=== PATIENT | male | born 1950 | race Caucasian/White ===

== ENCOUNTER 2018-10-21 01:12 | Emergency (ER) | payer MEDICARE ==
[2018-10-21] MEDS ORDERED: Lidocaine 1% INJ* 10 MG/ML 30 ML SDV INJ ONE (01:38)
--- NOTE | 2018-10-21 02:07 | ED ---
Laceration/Wound HPI - HPI Summary HPI Summary: 68 year old male presents with left pinky finger today. He states he cut it while making dinner. It happened 7 hours ago. Area continues to bleed. He has no medical conditions. Denies any foreign body. is a throbbing pain. - History of Current Complaint Stated Complaint: FINGER LAC PER PT Time Seen by Provider: 10/21/18 01:31 Pain Intensity: 8 - Allergy/Home Medications Allergies/Adverse Reactions: Allergies Allergy/AdvReac Type Severity Reaction Status Date / Time No Known Allergies Allergy Verified 10/21/18 01:15 PMH/Surg Hx/FS Hx/Imm Hx Endocrine/Hematology History: Denies: Hx Anticoagulant Therapy Respiratory History: Denies: Hx Asthma - Cancer History Hx Chemotherapy: No Hx Radiation Therapy: No Infectious Disease History: No Infectious Disease History: Denies: Traveled Outside the [place] in Last 30 Days - Family History Known Family History: Positive: Non-Contributory - Social History Alcohol Use: None Substance Use Type: Reports: None Smoking Status (MU): Never Smoked Tobacco Review of Systems Negative: Fever Negative: Chest Pain Negative: Shortness Of Breath Positive: Other - left pinky finger laceration All Other Systems Reviewed And Are Negative: Yes Physical Exam Triage Information Reviewed: Yes Vital Signs On Initial Exam: Initial Vitals Temp Pulse Resp BP Pulse Ox 99 F 91 18 119/77 96 10/21/18 01:14 10/21/18 01:14 10/21/18 01:14 10/21/18 01:14 10/21/18 01:14 Vital Signs Reviewed: Yes Appearance: Positive: Well-Appearing Skin: Positive: Warm, Dry, Other - 2cm flap like laceration to distal phalanx of left pinky finger Head/Face: Positive: Normal Head/Face Inspection Eyes: Positive: Normal, Conjunctiva Clear ENT: Positive: Pharynx normal Respiratory/Lung Sounds: Positive: Clear to Auscultation, Breath Sounds Present Cardiovascular: Positive: Normal, RRR Musculoskeletal: Positive: Strength/ROM Intact - right pinky finger, Other - good pulses, capillary refill<2secs Neurological: Positive: Normal Psychiatric: Positive: Normal Procedures - Laceration/Wound Repair 1 Location: Other - right pinky finger Description: Irregular Length, Depth and Shape: flap like laceration to left pinky finger Irrigated w/ Saline (ccs): 500 Closure: Single Layer Suture Type: Prolene Number of Sutures: 3 Diagnostics - Vital Signs Vital Signs Temp Pulse Resp BP Pulse Ox 10/21/18 01:14 99 F 91 18 119/77 96 - Laboratory Lab Statement: Any lab studies that have been ordered have been reviewed, and results considered in the medical decision making process. Laceration Repair Course/Dx - Course Course Of Treatment: 68 year old male presents with left pinky finger today. He states he cut it while making dinner. It happened 7 hours ago. Area continues to bleed. He has no medical conditions. Denies any foreign body. is a throbbing pain. On exam has 2 cm flap-like laceration to the distal phalanx of left pinky finger. Cleaned area and place 3 sutures. told keep very clean and dry. warned if develop any signs of infection to return. Patient understands agrees with plan. - Differential Dx Differental Diagnoses: Abrasion, Avulsion, Laceration - Clinical Impression Provider Diagnoses: Laceration of left little finger Discharge - Sign-Out/Discharge Documenting (check all that apply): Patient Departure Patient Received Moderate/Deep Sedation with Procedure: No - Discharge Plan Condition: Good Disposition: HOME Patient Education Materials: Care For Your Stitches (ED) Referrals: Aris Razo MD [Primary Care Provider] - Additional Instructions: Take Tylenol or ibuprofen for pain every 6 hours as needed Keep area clean and dry for 24 hours Return to ED or primary in 8-10 days to have sutures removed Return to ED if develop signs of infection such as fever, spreading redness, or pus. - Billing Disposition and Condition Condition: GOOD Disposition: Home
[2018-10-21 02:16] VITALS: BP 121/84
== END 2018-10-21 02:16 | disposition home or self-care (01) ==
LOC: ED 01:12
DX: S61.217A Laceration without foreign body of left little finger without damage to nail, initial encounter (principal); W45.8XXA Other foreign body or object entering through skin, initial encounter; Y93.G3 Activity, cooking and baking; Y92.9 Unspecified place or not applicable
CPT/HCPCS: 12001; 99282

== ENCOUNTER 2019-05-18 18:08 | Emergency (ER) | payer MEDICARE ==
--- OUTSIDE RECORDS SUMMARY | 2019-05-18 18:39 | XMS REPORT | Continuity of Care Document ---
:1950 External Reference #:[id number] Author Name Nirmala Lester N.P. (transmitted by agent of provider Radha Amador) Address [address] [place] [address] Care Team Providers Name Role Phone Aris Razo MD - Family Medicine Care Team Information Expediter Clerk Problems Active Problems Provider Date Pure hypercholesterolemia Jhony Mclaughlin M.D. Onset: 12/26/2011 Mitral valve disorder Jhony Mclaughlin M.D. Onset: 12/26/2011 Valvular cardiomyopathy Jhony Mclaughlin M.D. Onset: 10/25/2015 Social History Type Date Description Comments Sex Unknown Tobacco Use Start: Unknown 1 PK Day For 14 Yrs , Quit when she was Has Quit 31. ETOH Use 1 Glass Of Wine a month Tobacco Use Start: Unknown End: Patient is a former Unknown smoker Recreational Drug Use Denies Drug Use Smoking Status Reviewed: 04/30/19 Patient is a former smoker Enjoy Exercising Enjoys exercising Huber chi 7x week /walk Exercise Type/Frequency Exercises regularly Allergies, Adverse Reactions, Alerts Active Allergies Reaction Severity Comments Date Lisinopril cough 01/30/2011 Milk-related Compounds 12/30/2013 Bell 12/30/2013 Inactive Allergies NKDA 12/30/2007 Medications Active Medications SIG Qnty Indications Ordering Date Provider Amoxicillin/Clavulanat prior to dental Jhony Echols 05/07/2018 e Potassium ER treatment Adrian Mclaughlin Tablets Coreg 1 by mouth twice 180tabs Jhony Echols 03/05/2018 3.125mg Tablets a day. Adrian Mclaughlin Pramiracteum 2 po daily 30units Jhony Echols 04/18/2017 150mg Adrian Mclaughlin Spironolactone 1/2 by mouth 100tabs Jhony Echols 12/20/2014 50mg twice a day Adrian Mclaughlin Tablets Synthroid 1 PO qd 90tabs Aleetaybsergio S. 12/30/2007 75mcg Tablets Adrian Diaz Aspirin 1 PO qd Qutaybeh S. 12/30/[address] Emily M.D. Astralagus alternates with Unknown Siberian ginseng qo week (2 tabs) Vit D 1 po qd Unknown 1000Unit Tablets Bettyeerian Ginseng every other week. Unknown 250mg Capsules Estradiol 2 tablets daily, Unknown 1mg Tablets 7 days per week Oxybutynin Chloride ER one tab a day Unknown 15mg Tablets ER 24HR Magnesium 1 po qd Unknown 120mg Tablets Immunizations Description No Information Available Vital Signs Date Vital Result Comment 04/30/2019 2:13pm Height 72 inches 6'0" Weight 164.19 lb with shoes Heart Rate 76 /min left radial regular BP Systolic Sitting 108 mmHg ule reg cuff BP Diastolic Sitting 74 mmHg ule reg cuff BP Systolic Standing 100 mmHg ule reg cuff BP Diastolic Standing 72 mmHg ule reg cuff BMI (Body Mass Index) 22.3 kg/m2 Ejection Fraction 50%-55% echo 10/01/18 10/21/2018 12:58pm Height 72 inches 6'0" Weight 162.38 lb Shoes/clothes Heart Rate 82 /min Radial BP Systolic Sitting 114 mmHg Lue reg cuff BP Diastolic Sitting 70 mmHg Lue reg cuff BP Systolic Standing 110 mmHg Lue reg cuff BP Diastolic Standing 70 mmHg Lue reg cuff BMI (Body Mass Index) 22.0 kg/m2 Ejection Fraction 50-55% Echo 10/01/2018 Results Description No Information Available Procedures Date Code Description Status 04/30/2019 56530 EKG Tracing & Interpretation Completed Medical Devices Description No Information Available Encounters Description No Information Available Assessments Date Code Description Provider 04/30/2019 I42.9 Cardiomyopathy, unspecified Nirmala Lester, N.P. 04/30/2019 I34.0 Nonrheumatic mitral (valve) insufficiency Nirmala Lester, N.P. 04/30/2019 I95.1 Orthostatic hypotension Nirmala Lester N.P. Plan of Treatment 04/30/2019 - Nirmala Lester N.P.I42.9 Cardiomyopathy, unspecifiedFollow up:OV JFM 6moRecommendations:Continue carvedilol at current dose Have labs at primary care doctors office in the next 3-4 months.I34.0 Nonrheumatic mitral (valve) erapzdecoblrqO71.1 Orthostatic hypotension Functional Status Description No Information Available Mental Status Description No Information Available Referrals Description No Information Available
--- OUTSIDE RECORDS SUMMARY | 2019-05-18 18:39 | XMS REPORT | Continuity of Care Document ---
:1950 External Reference #:[id number] Author Name Roro Saini NP Address [address] [place] [address] Care Team Providers Name Role Phone Bowen Soriano - Urology Care Team Information Industrial Refrigeration Mechanic [phone] Julio Dumont - Endocrinology, Diabetes & Care Team Information Industrial Refrigeration Mechanic Metabolism Problems Active Problems Provider Date Testicular hypofunction Aris Razo M.D. Onset: 08/02/2011 Hyperlipidemia Aris Razo M.D. Onset: 08/02/2011 Hypothyroidism Aris Razo M.D. Onset: 08/02/2011 Benign prostatic hypertrophy without outflow Aris Razo M.D. Onset: obstruction Primary cardiomyopathy Aris Razo M.D. Onset: 07/24/2012 Family history of breast cancer Aris Razo M.D. Onset: 03/17/2015 Mitral leaflet abnormality Aris Razo M.D. Onset: 04/15/2018 Social History Type Date Description Comments Sex Unknown Tobacco Use Start: Unknown Never Smoked Cigarettes ETOH Use Rarely consumes alcohol Tobacco Use Start: Unknown End: Unknown Patient is a former smoker Smoking Status Reviewed: 04/21/19 Patient is a former smoker Allergies, Adverse Reactions, Alerts Description No Known Drug Allergies Medications Active Medications SIG Qnty Indications Ordering Date Provider Bacitracin-Polymyxin apply to affected 3.500gm H00.011 Roro Lennon 2018 B eye three times a JIMMY Saini [id number]/GM day Ointment Spironolactone 1 by mouth Twice A Aris Echols 03/17/2015 25mg Day Adrian Razo Tablets Astragalus herb from Aris F. 08/10/2008 accupuncture Adrian Razo Siberian Ginseng 2 Tabs PO qd Every Aris F. 12/15/2007 Other Week Adrian Razo Capsules Synthroid 1 po qd 30tabs Aris F. 11/21/2006 75mcg Tablets Adrian Razo Aspirin 1 PO qd 0units Aris F. 11/21/2006 81mg Chewtabs Adrian Razo Magnesium Chelated 1 by mouth daily Aris F. Tab Adrian Razo Oxybutynin Chloride 1 by mouTH Daily Aris F. ER Adrian Razo 10mg Tablets ER 24HR Vitamin D 1 by mouth every Unknown 1000Unit day otc Tablets Carvedilol take 1 tablet by Unknown 3.125mg mouth twice a day Tablets Progesterone 1 by mouth every Unknown Micronized day 100mg Capsules Estradiol Unknown 2mg Tablets Immunizations CPT Code Status Date Vaccine Lot # [id number] Given 04/15/2018 High-Dose, Influenza Virus Vacccine-fluzone 65 and [id number] older 91041 Given 04/17/2017 Influenza Vac, [place], [place] [address] Given 04/23/2016 High-Dose, Influenza Virus Vacccine-fluzone 65 and [id number] older 49676 Given 03/17/2015 Pneumococcal Conjugate Vacc-13 [id number] 80533 Given 04/19/2014 DO Not Use Split Influenza Virus Vaccine 78044 Given 02/04/2014 Zostivax 26844 Given 04/22/2012 DO Not Use Split Influenza Virus Vaccine 91447 Given 02/07/2012 Tdap Tetanus, W Pertussis [id number] 15164 Given 03/27/2011 DO Not Use Split Influenza Virus Vaccine [id number] 60773 Given 04/21/2010 DO Not Use Split Influenza Virus Vaccine 68303 Given 05/01/2002 Td Immunization, For Use In Individuals 7 Years Or Older 86693 Given 04/28/2002 Influenza Immunization 77207 Given 04/28/2002 DO Not Use Split Influenza Virus Vaccine 74800 Given 11/10/2001 Hepatitis B Immunization, adult dosage, for intramuscular use 10938 Given 05/22/2001 Hepatitis B Immunization, adult dosage, for intramuscular use 63959 Given 05/15/2001 Influenza Immunization 56760 Given 05/15/2001 DO Not Use Split Influenza Virus Vaccine 93748 Given 04/24/2001 Hepatitis B Immunization, adult dosage, for intramuscular use 45763 Given 05/16/1998 Pneumococcal Immunization 63641 Given 05/16/1998 Influenza Immunization Vital Signs Date Vital Result Comment 04/21/2019 10:03am BP Systolic 102 mmHg BP Diastolic 70 mmHg Heart Rate 92 /min Body Temperature 97.5 F Height 72 inches 6'0" Weight 165.00 lb BMI (Body Mass Index) 22.4 kg/m2 03/28/2019 12:42pm BP Systolic 100 mmHg BP Diastolic 70 mmHg Heart Rate 68 /min Body Temperature 98.0 F Respiratory Rate 18 /min Height 72 inches 6'0" Weight 165.00 lb BMI (Body Mass Index) 22.4 kg/m2 Results Test Date Facility Test Result H/L Range Note Laboratory test finding 02/16/2019 [facility] [place]actin 7.0 ng/mL Normal 1.0- 20.0 1 Estradiol 216 pg/mL High Less Than 50 2 Testosterone Total Bioavail 02/16/2019 [facility] Testosterone 113 ng/dL Abnormal 240-950 3 Bioavailable Testosterone 21 ng/dL Abnormal 40-168 4 Laboratory test finding 02/16/2019 García Jennifer(fma) TSH 4.20 mIU/L 0.50-6.00 Free T4 1.17 ng/dL 0.75-1.54 1 [id number] 1 SST, 1 Serum Pour Off 2 Estradiols <40 pg/mL are sent to a reference lab for low range testing. 3 ADDITIONAL INFORMATION Testing performed by Liquid Chromatography-Tandem Mass Spectrometry (LC-MS/MS). This test was developed and its performance characteristics determined by [facility] in a manner consistent with CLIA requirements. This test has not been cleared or approved by the U.S. Food and Drug Administration. Test Performed by: [facility] [address] [place] [address] 4 ADDITIONAL INFORMATION Testing performed by Differential Precipitation. This test was developed and its performance characteristics determined by [facility] in a manner consistent with CLIA requirements. This test has not been cleared or approved by the U.S. Food and Drug Administration. Procedures Date Code Description Status 03/03/2019 [id number] Mammogram Completed 02/28/2018 [id number] Mammogram Completed 02/13/2017 [id number] Mammogram Completed 01/27/2016 [id number] Mammogram Completed 01/28/2015 [id number] Mammogram Completed 08/29/2012 [id number] Mammogram Completed 02/14/2012 [id number] Mammogram Completed 07/26/2011 [id number] Mammogram Completed 03/23/2011 [id number] Colonoscopy Completed Medical Devices Description No Information Available Encounters Type Date Location Provider Dx Diagnosis Office Visit 03/28/2019 [facility] Alethea Mendoza, S60.450A Superficial 12:15p PA foreign body of right index finger, init encntr W45.8xxA Oth foreign body or object entering through skin, init Office Visit 10/30/2018 1:00p Main Office Sylwia Romero, S61.217D Lac w/o fb of l WOOL HANKER little finger w/o damage to nail, subs Z48.02 Encounter for removal of sutures Assessments Date Code Description Provider 04/21/2019 H00.011 Hordeolum externum right upper eyelid Roro Saini NP 03/28/2019 S60.450A Superficial foreign body of right index ROSINA Alvarado finger, initial encounter 03/28/2019 W45.8xxA Other foreign body or object entering ROSINA Alvarado through skin, initial encounter 02/16/2019 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 10/30/2018 S61.217D Laceration without foreign body of left Sylwia Romero NP little finger withou 10/30/2018 Z48.02 Encounter for removal of sutures Sylwia Romero NP Plan of Treatment Future Appointment(s):06/04/2019 1:00 pm - Aris Razo M.D. at Main [id number]/21/2019 - Roro Saini, NPH00.011 Hordeolum externum right upper eyelidNew Medication:Bacitracin-Polymyxin B [id number] Unit/GM - apply to affected eye three times a dayComments:STYE: While most styes will drain on theirown, the application of a hot or warmcompress are the mosteffectivemeans of acceleratingdrainage. Thewarmth and dampnessencourages thestye to drain. Just likeany infectiontry not to touch it with your fingers. Acompress can be made by putting hot(not boiling) water on a wash cloth, orby using room temperature water crystal plastic heat pack. Warm compressesshould be applied for 10??20minutes, four (4) times a day.There is also a specialized topicalointment for styes, that may be prescribed.Styes may also cause a bruised feelingaround the eye which is treatedbyapplication of a warm cloth to the eye.With treatment , styes typically resolvewithin one week. Lancing of a stye isnot recommended.Follow up:patient instructed to call back if condition fails to improve or worsens.AllComments:Medication Management Patient Understands medications he 's taking? Yes No Are there Barriers to Adherence? Yes No Has the patient been asked about herbal supplements and therapies, andOTC meds? Yes No Care Plan1. Patient has been queried about patient's goals/preferences and functional/lifestyle goals at relevant visits. If relevant, describe: na2. Treatment goals as explained to the patient: above3. Are there barriers to meeting treatment goals? Yes No If Yes, please describe:4. Self-Management goals as described to the patient: Yes NoAs always, we strongly encourage a healthy diet and making physical activity a part of your every day life. If you have questions about how or where to start , please contact the office. Functional Status Description No Information Available Mental Status Description No Information Available Referrals Description No Information Available
--- OUTSIDE RECORDS SUMMARY | 2019-05-18 18:39 | XMS REPORT | Continuity of Care Document ---
:1950 External Reference #:[id number] Author Name ROSINA Alvarado Address [address] [facility] [place] [address] Care Team Providers Name Role Phone Bowen Soriano - Urology Care Team Information Apple Turner [phone] Julio Dumont - Endocrinology, Diabetes & Care Team Information Apple Turner [phone] Metabolism Problems Active Problems Provider Date Testicular [...] is a former smoker Smoking Status Reviewed: 08/08/18 Patient is a former smoker Allergies, Adverse Reactions, Alerts Description No Known Drug Allergies Medications Active Medications SIG Qnty Indications Ordering Date Provider Spironolactone 1 by mouth Twice A Aris Echols 03/17/2015 25mg Day Adrian Razo Tablets Astragalus herb from Aris FLinus 08/10/2008 [facility]up[facility] Tabs PO qd Every Aris [...] CPT Code Status Date Vaccine Lot # [id number] Given 04/15/2018 High-Dose, Influenza Virus Vacccine-fluzone 65 and [id number] older 58265 Given 04/17/2017 Influenza Vac, [place], [place] [address] Given 04/23/2016 High-Dose, Influenza Virus Vacccine-fluzone 65 and [id number] older 83551 Given 03/17/2015 Pneumococcal Conjugate Vacc-13 [id number] 57274 Given 04/19/2014 DO Not Use Split Influenza Virus Vaccine 01508 Given 02/04/2014 Zostivax 25914 Given 04/22/2012 DO Not Use Split Influenza Virus Vaccine 93465 Given 02/07/2012 Tdap Tetanus, W Pertussis [id number] 06225 Given 03/27/2011 DO Not Use Split Influenza Virus Vaccine [id number] 37616 Given 04/21/2010 DO Not Use Split Influenza Virus Vaccine 62215 Given 05/01/2002 Td Immunization, For Use In Individuals 7 Years Or Older 52367 Given 04/28/2002 Influenza Immunization 46621 Given 04/28/2002 DO Not Use Split Influenza Virus Vaccine 78103 Given 11/10/2001 Hepatitis B Immunization, adult dosage, for intramuscular use 32250 Given 05/22/2001 Hepatitis B Immunization, adult dosage, for intramuscular use 22479 Given 05/15/2001 Influenza Immunization 72226 Given 05/15/2001 DO Not Use Split Influenza Virus Vaccine 69701 Given 04/24/2001 Hepatitis B Immunization, adult dosage, for intramuscular use 63188 Given 05/16/1998 Pneumococcal Immunization 76433 Given 05/16/1998 Influenza Immunization Vital Signs Date Vital Result Comment 03/28/2019 12:42pm BP Systolic 100 mmHg BP Diastolic 70 mmHg Heart Rate 68 /min Body Temperature 98.0 F Respiratory Rate 18 /min Height 72 inches 6'0" Weight 165.00 lb BMI (Body Mass Index) 22.4 kg/m2 10/30/2018 1:05pm BP Systolic 100 mmHg BP Diastolic 60 mmHg Heart Rate 84 /min Body Temperature 97.7 F Respiratory Rate 17 /min Height 72 inches 6'0" Weight 165.00 lb BMI (Body Mass Index) 22.4 kg/m2 Results Test Date Facility Test Result H/L Range Note Laboratory test finding 02/16/[place] [facility] [place] 7.0 ng/mL Normal 1.0- 20.0 1 Estradiol 216 pg/mL High Less Than 50 2 Testosterone Total Bioavail 02/16/[place] [facility] [place] 113 ng/dL Abnormal 240-950 3 Bioavailable Testosterone 21 ng/dL Abnormal 40-168 4 Laboratory test finding 02/16/2019 García Jennifer(fma) TSH 4.20 mIU/L 0.50-6.00 Free T4 1.17 ng/dL 0.75-1.54 1 [id number] 1 SST, 1 Serum Pour Off 2 Estradiols <40 pg/mL are sent to a reference lab for low range testing. 3 ADDITIONAL INFORMATION Testing performed by Liquid Chromatography-Tandem Mass Spectrometry (LC-MS/MS). This test was developed and its performance characteristics determined by [facility] in a manner consistent with CLIA requirements. This test has not been cleared or approved by the U.S. Food and Drug Administration. Test Performed by: [facility] [address] [place] [address] 4 ADDITIONAL INFORMATION Testing performed by Differential Precipitation. This test was developed and its performance characteristics determined by [facility] in a manner consistent with CLIA requirements. This test has not been cleared or approved by the U.S. Food and Drug Administration. 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 10/30/2018 S61.217D Laceration without foreign body of left Sylwia Romero NP little finger withou 10/30/2018 Z48.02 Encounter for removal of sutures Sylwia Romero NP Plan of Treatment Future Appointment(s):06/04/2019 1:00 pm - Aris Razo M.D. at Main Zckxks2803/28/2019 - Alethea Mendoza, PAW45.8xxA Other foreign body or object entering through skin, initial encounterComments:Your sliver was successfully removed. Call with any concerns, pain, or swelling of the nailbed.AllComments: PCMHMedication Management Patient Understands medications he's taking? Yes Are there Barriers to Adherence? No Has the patient been asked about herbal supplements and therapies, and OTC meds? Yes Care Plan1. Patient has been queried about patient's goals/preferences and functional/ lifestyle goals at relevant visits. Yes If relevant, describe: N/A2. Treatment goals as explained to the patient: above3. Are there barriers to meeting treatment goals? No If Yes, please describe:4. Self-Management goals as described to the patient: Yes As always, we strongly encourage a healthy diet and making physical activity a part of your every day life. If you have questions about how or where to start, please contact the office. Functional Status Description No Information Available Mental Status Description No Information Available Referrals Description No Information Available
--- NOTE | 2019-05-18 20:14 | ED ---
Dizziness - HPI Summary HPI Summary: The patient is a 69 y/o M arriving by ambulance to [facility] accompanied by with a chief complaint of lightheadedness onset in the last two days. He reports that he visited Dr. Dumont today, where it was found that he had an elevated HR of 140 BPM, O2 sat of 98%, and low BP, but only had mild lightheadedness. Once he arrived home, he had checked his HR at home, which read 136 BPM. He called cardiology, and Dr. Murguia told him to come to the ED. When EMS arrived, his HR was 108 BPM, and he was still concerned because his HR is usually around 60 BPM. En route to the hospital, EMS administered NTG x1 and 324mg. Currently, he is still experiencing lightheadedness, but he denies any chest pain, SOB, nausea, vomiting, diarrhea, or decreased appetite. He has also been suffering from a productive cough for the last five days. He is not in any pain now. He notes he had caffeinated coffee this morning which is usual for him. PMHx: thyroid disease, mitral valve repair, inguinal hernia repair. Former smoker, rare EtOH, no substance use. Medications reviewed. Allergies noted. - History Of Current Complaint Chief Complaint: EDGeneral Stated Complaint: LIGHT HEADED,CHEST HEAVYNESS PER EMS Time Seen by Provider: 05/18/19 19:07 Hx Obtained From: Patient Onset/Duration: Still Present Severity Initially: Mild Severity Currently: Mild Character: Lightheaded Aggravating Factor(s): Nothing Alleviating Factor(s): Nothing Associated Signs And Symptoms: Positive: Other: - productive cough. Negative: Nausea, Vomiting, Diarrhea, Chest Pain, SOB, Decreased Oral Intake - Allergies/Home Medications Allergies/Adverse Reactions: Allergies Allergy/AdvReac Type Severity Reaction Status Date / Time No Known Allergies Allergy Verified 10/21/18 01:15 Home Medications: Home Medications Aspirin EC TAB* [Ecotrin EC Low Dose 81 MG*] 81 mg PO DAILY 05/18/19 [History Confirmed 05/18/19] Carvedilol TAB* [Coreg TAB*] 3.125 mg PO BID 05/18/19 [History Confirmed ] Estradiol TAB(NF) 2 mg PO DAILY 05/18/19 [History Confirmed 05/18/19] Levothyroxine TAB* [Synthroid TAB*] 75 mcg PO DAILY 05/18/19 [History Confirmed 05/18/19] Magnesium Glycinate [Mag Glycinate] 120 mg PO QPM 05/18/19 [History Confirmed ] Pramiracetum 150mg 300 mg PO QAM 05/18/19 [History Confirmed 05/18/19] Progesterone CAP (NF) [Prometrium (NF)] 100 mg PO BEDTIME 05/18/19 [History Confirmed 05/18/19] Spironolactone (NF) [Spironolactone 50 MG (NF)] 25 mg PO BID 05/18/19 [History Confirmed 05/18/19] PMH/Surg Hx/FS Hx/Imm Hx Endocrine/Hematology History: Reports: Hx Thyroid Disease Denies: Hx Anticoagulant Therapy, Hx Diabetes Cardiovascular History: Denies: Hx Hypercholesterolemia Respiratory History: Denies: Hx Asthma - Cancer History Hx Chemotherapy: No Hx Radiation Therapy: No - Surgical History Surgical History: Yes Surgery Procedure, Year, and Place: mitral valve repiar 1997, inguinal hernia repair 2012 [facility] [place] Infectious Disease History: No Infectious Disease History: Denies: Traveled Outside the [place] in Last 30 Days - Family History Known Family History: Positive: Other - breast cancer Negative: Diabetes - Social History Alcohol Use: Rare Hx Substance Use: No Substance Use Type: Reports: None Hx Tobacco Use: No Smoking Status (MU): Former Smoker Review of Systems - ROS Summary Review of Systems Summary: Home Medications Medication Instructions Recorded Confirmed Type Aspirin EC TAB* [Ecotrin EC Low 81 mg PO DAILY 05/18/19 05/18/19 History Dose 81 MG*] Carvedilol TAB* [Coreg TAB*] 3.125 mg PO BID 05/18/19 05/18/19 History Estradiol TAB(NF) 2 mg PO DAILY 05/18/19 05/18/19 History Levothyroxine TAB* [Synthroid TAB*] 75 mcg PO DAILY 05/18/19 05/18/19 History Magnesium Glycinate [Mag Glycinate] 120 mg PO QPM 05/18/19 05/18/19 History Pramiracetum 150mg 300 mg PO QAM 05/18/19 05/18/19 History Progesterone CAP (NF) [Prometrium 100 mg PO BEDTIME 05/18/19 05/18/19 History (NF)] Spironolactone (NF) 25 mg PO BID 05/18/19 05/18/19 History [Spironolactone 50 MG (NF)] Negative: Chest Pain Positive: Cough - productive. Negative: Shortness Of Breath Negative: Vomiting, Diarrhea, Nausea, Other - decreased appetite Neurological: Other - lightheadedness All Other Systems Reviewed And Are Negative: Yes Physical Exam - Summary Physical Exam Summary: General: Well-developed, thin male. No acute distress. HEENT: Normocephalic, Atraumatic. Eyes: Conjuctiva normal, PERRL. Ears: TMs within normal limits. Nares: (-) discharge, (-) erythema. Oropharynx: Clear, mucous membranes moist, (-) exudates. Neck: Soft, FROM, (-) lymphadenopathy, (-) thyromegaly, (-) JVD. Cardiovascular: Normal sinus rhythm, (-) murmur. Lungs: Clear to auscultation bilaterally (-) wheezes, (-) rales, (-) rhonchi. Abdomen: Soft, non-tender, non-distended, (-) organomegaly, normal bowel sounds. Back: (-) CVA tenderness Extremities: No edema. Skin: Warm, dry, (-) rash. Neuro: Alert and oriented x3, no focal deficits. Psychiatric: Mildly anxious appearing but mood and affect otherwise normal. Triage Information Reviewed: Yes Vital Signs On Initial Exam: Initial Vitals Temp Pulse Resp BP Pulse Ox 98.0 F 88 14 96/68 94 05/18/19 18:25 05/18/19 18:25 05/18/19 18:25 05/18/19 18:25 05/18/19 18:25 Vital Signs Reviewed: Yes Procedures - Sedation Patient Received Moderate/Deep Sedation with Procedure: No Diagnostics - Vital Signs Vital Signs Temp Pulse Resp BP Pulse Ox 05/18/19 19:00 86 21 96 05/18/19 18:56 88 20 80/57 95 05/18/19 18:36 88 17 96/68 94 05/18/19 18:29 88 97 05/18/19 18:27 88 96/71 96 05/18/19 18:25 98.0 F 88 14 96/68 94 - Laboratory Result Diagrams: 05/18/19 20:22 05/18/19 20:22 Lab Statement: Any lab studies that have been ordered have been reviewed, and results considered in the medical decision making process. - Radiology CXR Radiology Interpretation Completed By: ED Physician Summary of Radiographic Findings: No infiltrate. No pleural effusion. ED physician has interpreted and reviewed this imaging report. Pending official read. - EKG 1806 Cardiac Rate: NL - 86 BPM EKG Rhythm: Sinus Rhythm Summary of EKG Findings: EKG at 1806 reveals normal sinus rhythm with rate of 86 BPM, no acute changes, no ischemic changes. This EKG was reviewed and interpreted by Dr. Kc. Re-Evaluation - Re-Evaluation First Eval Re-Evaluation Time: 21:35 Change: Improved Comment: I have discussed results with the patient and lightheadedness is resolved. Orthostatic vitals are normal. Discussed symptoms that warrant immediate return to ED. Dizzy Course/Dx - Course Course Of Treatment: 69-year-old male with tachycardia and lightheadedness. Patient very concerned about his heart rate being so high earlier. Also states his blood pressure has been higher than his normal. Patient was at [facility] earlier and felt fine. After getting home however he had some chest pressure and some lightheadedness. Cardiology advised him to be seen in the emergency room. He has been mildly tachycardic while here. After eating he had no further lightheadedness. Vitals are within normal limits. Workup essentially negative although nondiagnostic. Patient discharged home. Follow- up with PCP. Follow up sooner for any worsening symptoms. - Diagnoses Provider Diagnoses: Lightheadedness, Tachycardia Discharge ED - Sign-Out/Discharge Documenting (check all that apply): Patient Departure - Patient will be discharged home. - Discharge Plan Condition: Stable Disposition: HOME Patient Education Materials: Lightheadedness (ED), Tachycardia (ED) Referrals: Aris Razo MD [Primary Care Provider] - 3 Days Jose Murguia MD [Medical Doctor] - 3 Days Additional Instructions: Please follow up with your primary care physician and cardiology within three days. Please return to ED for any new or worsening symptoms. - Billing Disposition and Condition Condition: STABLE Disposition: Home - Attestation Statements Document Initiated by Scribe: Yes Documenting Scribe: Sugey Jacobson Provider For Whom Scribe is Documenting (Include Credential): Dr. Linda Kc MD Scribe Attestation: Sugey Carbajal scribed for Dr. Linda Kc MD on 05/18/19 at 2237. Scribe Documentation Reviewed: Yes Provider Attestation: The documentation as recorded by the scribe, Sugey Jacobson accurately reflects the service I personally performed and the decisions made by me, Dr. Linda Kc MD Status of Scribe Document: Viewed
[2019-05-18 20:41] LABS: ABS Eosinophils 0.1 10^3/ul (0-0.6); ABS Monocytes 0.7 10^3/ul (0-0.8); ABS Neutrophils 3.8 10^3/ul (1.5-7.7); Eosinophil % 1.7 %; Hematocrit 40 % (42-52); Hemoglobin 13.7 g/dL (14.0-18.0); Mean Corpuscular HGB Conc 34 g/dL (31-36); Mean Corpuscular Hemoglobin 32 pg (27-31); Mean Corpuscular Volume 92 fL (80-94); Mean Platelet Volume 8.2 fL (7.4-10.4); Platelet Count 181 10^3/uL (150-450); Red Blood Count 4.33 10^6 /uL (4.18-5.48); Red Cell Distribution Width 14 % (10-15); White Blood Count 5.7 10^3/uL (3.5-10.8)
[2019-05-18 20:59] LABS: Albumin 3.8 g/dL (3.2-5.2); Albumin/Globulin Ratio 2.1 (1-3); BUN/Creatinine Ratio 18.8 (8-20); Calcium 8.5 mg/dL (8.6-10.3); EGFR African American 108.1 (>60); EGFR Non-African American 89.4 (>60); Globulin 1.8 g/dL (2-4); Total Bilirubin 0.4 mg/dL (0.2-1.0); Total Protein 5.6 g/dL (6.4-8.9)
[2019-05-18 22:14] VITALS: BP 97/63
[2019-05-19] MEDS ORDERED: [UNRECOGNIZED DRUG - OTHER] PO SCH (09:00)
[2019-05-19] MEDS ORDERED: Spironolactone TAB* 25 MG PO SCH (09:00)
[2019-05-19] MEDS ORDERED: Estradiol TAB(NF) 2 MG TAB PO SCH (09:00)
[2019-05-19] MEDS ORDERED: Carvedilol TAB* 3.125 MG PO SCH (09:00)
[2019-05-19] MEDS ORDERED: Levothyroxine TAB* 75 MCG TAB PO SCH (09:00)
[2019-05-19] MEDS ORDERED: Aspirin EC TAB* 81 MG TAB.EC PO SCH (09:00)
[2019-05-19] MEDS ORDERED: MAGNESIUM GLYCINATE 120 MG PO SCH (18:00)
[2019-05-19] MEDS ORDERED: Progesterone CAP (NF) 100 MG CAP PO SCH (21:00)
== END 2019-05-18 22:10 | disposition home or self-care (01) ==
LOC: ED 18:08
DX: R42 Dizziness and giddiness (principal); E03.9 Hypothyroidism, unspecified; Z87.891 Personal history of nicotine dependence; R05 Cough; Z95.4 Presence of other heart-valve replacement; R00.0 Tachycardia, unspecified
CPT/HCPCS: 36415; 71045; 80053; 83605; 84484; 85025; 93005; 99284; A9270-GY